=== PATIENT | male | born 1995 | race Two or more races ===

== ENCOUNTER 2017-03-29 00:50 | Emergency (ER) | payer OTHER ==
--- NOTE | 2017-03-29 01:23 | EDPHY ---
H & P <Harry Ramirez - Last Filed: 03/29/17 02:22> Smoking Status: Never smoked <Kyara Menjivar - Last Filed: 03/30/17 08:16> Time Seen by Provider: 03/29/17 01:05 HPI/ROS: CHIEF COMPLAINT: Alcohol intoxication, fall head injury HISTORY OF PRESENT ILLNESS: 21-year-old male presents to the emergency department with acute alcohol intoxication as well as head injury. Patient apparently drank a large amount of red wine this evening and then was walking up stairs and lost his balance and fell striking his head. He has vomited a few times since this happened just prior to arrival. He does complain of a headache. Denies neck or back pain. Denies chest pain or difficulty breathing. Denies abdominal pain. Denies injury to his upper lower extremities. No history of previous head injuries. No other substance abuse. REVIEW OF SYSTEMS: Constitutional: No fever, no chills. Eyes: No double or blurry vision. ENT: No sore throat. Respiratory: No cough, no shortness of breath. Cardiac: No chest pain. Gastrointestinal: No abdominal pain, vomiting or diarrhea. Genitourinary: No dysuria. Musculoskeletal: No neck or back pain. Skin: Scalp laceration. No rashes. Neurological: No headache. (Kyara Menjivar) Past Medical/Surgical History: Negative (Kyara Menjivar) Social History: [employer] student from [place] (Kyara Menjivar) Physical Exam: General Appearance: Lethargic. Vomiting. Friend at bedside. Eyes: Pupils equal and round. Extraocular motions are all intact. ENT: Mouth: Mucous membranes moist. No dental injury or malocclusion. Respiratory: No wheezing, rhonchi, or rales, lungs are clear to auscultation. Cardiovascular: Regular rate and rhythm. Gastrointestinal: Abdomen is soft and nontender, no masses, no rebound or guarding, bowel sounds normal. Neurological: Alert and oriented x 3, cranial nerves II through XII grossly intact Skin: 2.5 cm right anterior frontal scalp laceration. No active bleeding noted. Minimally tender to palpate. No evidence of depressed skull fracture. Warm and dry, no rashes. Musculoskeletal: Nontender to palpate along the cervical, thoracic or lumbar spine. Neck is supple. Extremities: Full range of motion and no peripheral edema. Psychiatric: Patient is oriented X 3, there is no agitation. (Kyara Menjivar) Constitutional: Initial Vital Signs Temperature (C) 36.7 C 03/29/17 00:51 Heart Rate 110 H 03/29/17 00:51 Respiratory Rate 18 03/29/17 00:51 Blood Pressure 140/84 H 03/29/17 00:51 O2 Sat (%) 96 03/29/17 00:51 O2 Delivery Mode Room Air Allergies/Adverse Reactions: amoxicillin Allergy (Uncoded 12/22/15 23:41) Home Medications: Medication Instructions Recorded NK [No Known Home Meds] 03/29/17 Medical Decision Making - Diagnostics Imaging: Discussed imaging studies w/ retort cooler Radiologist <Harry Ramirez - Last Filed: 03/29/17 02:22> <Kyara Menjivar - Last Filed: 03/30/17 08:16> - Diagnostics Imaging Results: CT scan of the head is negative per Dr. Heaton. (Harry Ramirez) Procedures: Laceration repair. Verbal consent was obtained from the patient. The 2.5 cm laceration on the right frontal scalp was anesthetized using 1% lidocaine without epinephrine. The wound was irrigated with saline, draped and explored to its base with a gloved finger. There were no deep structures involved. The wound was repaired with 5 rogelio. The wound repair was simple. The procedure was performed by myself. (Kyara Menjivar) ED Course/Re-evaluation: 21-year-old male presents to the emergency department with acute alcohol intoxication. The patient also has evidence of head and is vomiting. It is not clear whether this patient is vomiting because of head injury or because of acute alcohol intoxication. He began vomiting after hitting his head. I discussed the pros and cons of CT imaging of his brain including radiation exposure the patient and friend at bedside agree with CT scan. Laceration was repaired, see procedure note. (Kyara Menjivar) Differential Diagnosis: Head injury including but not limited to concussion, skull fracture, intraparenchymal contusion, subarachnoid, subdural and epidural hematoma. Altered mental status including but not limited to hypoglycemia, infectious process, electrolyte abnormality, head injury and intoxicants. (Kyara Menjivar) Other Provider: 0200 care assumed by me from TATIANNA Menjivar pending CT scan of the head. 0222 CT scan of the head is negative per Dr. Heaton. Patient will be discharged per TATIANNA Menjivar's plan. (Harry Ramirez) Departure <Harry Ramirez - Last Filed: 03/29/17 02:22> <OttoKyara - Last Filed: 03/30/17 08:16> - Departure Disposition: Home, Routine, Self-Care Clinical Impression: Scalp laceration Qualifiers: Encounter type: initial encounter Qualified Code(s): S01.01XA - Laceration without foreign body of scalp, initial encounter Alcohol intoxication Qualifiers: Complication of substance-induced condition: uncomplicated Qualified Code(s): F10.920 - Alcohol use, unspecified with intoxication, uncomplicated Condition: Good Instructions: Care For Your Stitches (ED), Laceration (ED), Acute Wounds (ED) Additional Instructions: Wound Care Follow-Up: Removal of sutures in 7 days. Suture removal is complimentary in uncomplicated cases. Infection or abnormal findings would require reevaluation by the MD. In that case, you may be billed. Avoid any activity that might put you at risk for another head injury for at least 1 week. Return to the emerged part min developed worsening headache, vomiting, altered mental status, or if you feel worse in any way.
[2017-03-29 01:53] VITALS: RESP 18
[2017-03-29 02:56] VITALS: BP 121/50; PULSE 94; TEMP 97.5; O2SAT 95
== END 2017-03-29 03:10 | disposition home or self-care (01) ==
PROC: 0HQ0XZZ Repair Scalp Skin, External Approach (ICD-10-PCS; principal; 2017-03-29)
DX: S01.01XA Laceration without foreign body of scalp, initial encounter (principal); F10.920 Alcohol use, unspecified with intoxication, uncomplicated; W18.09XA Striking against other object with subsequent fall, initial encounter; Y99.8 Other external cause status; Y93.01 Activity, walking, marching and hiking